=== PATIENT | male | born 1965 | race Caucasian/White ===

== ENCOUNTER 2020-01-07 09:19 | Emergency (ER) | payer MEDICARE, MEDICAID, SELFPAY ==
[2020-01-07 09:25] VITALS: BP 151/97; PULSE 73; RESP 17; TEMP 36.6; O2SAT 100; BMI 21.7
--- NOTE | 2020-01-07 09:28 | XR_ITS ---
PROCEDURE: XR ANKLE LT MIN 3V CLINICAL INDICATION: pain COMPARISON: No exams were available for comparison FINDINGS: There is no significant soft tissue swelling. The medial and lateral malleolus appear intact. There is spurring of the tip of the medial malleolus however the overall ankle mortise appears normal. IMPRESSION: Negative for acute pathology Dictated by: Dr. Cuong Funes MD 01/07/2020 10:52 Dr. Cuong Funes MD in [place] 01/07/2020 10:52
--- NOTE | 2020-01-07 09:40 | [facility].EDGENADL ---
ED Disposition Clinical Impression: Left ankle sprain Qualifiers: Encounter type: initial encounter Involved ligament of ankle: anterior talofibular ligament Qualified Code(s): S93.492A - Sprain of other ligament of left ankle, initial encounter Disposition: Home, Self-Care Condition on Discharge: Good Instructions: DI for Ankle Sprain, How to Use Crutches Additional Instructions: Use crutches for 4-5 days. Ice 20 minutes 4-5 times a day and elevate ankle for 2 days. Use air cast for 1 week. Ibuprofen for pain. Follow-up with orthopedics if not improving in 4 to 5 days. Prescriptions: Ibuprofen [Ibuprofen 800mg Tab] 800 mg PO Q8HP PRN #15 tab PRN Reason: Moderate Pain Transmission Status: Pending to [facility] Referrals: PCP,Esther [Primary Care Provider] - Marni Garcia MD [Physician] - - Critical Care Critical Care Time: No Attestation: On 01/07/20, the high probability of a clinically significant, sudden or life threatening deterioration of the following system(s) required my full and direct attention, intervention and personal management. The time I documented below is in addition to time spent performing reported procedures but includes the following listed in this critical care notation. Medical Decision Making - Rosas Inquiry Pt receiving controlled substance: No Vital Signs: 01/07/20 09:25 Temperature 97.9 F Temperature Source Oral Pulse Rate [Right Radial] 73 Respiratory Rate 17 Blood Pressure [Right Arm] 151/97 H Blood Pressure Mean [Right Arm] 115 02 Sat by Pulse Oximetry 100 Oxygen Delivery Method Room Air Orders (Tests/Meds): ORDERS Category Date Time Status Ankle XR - Left minimum 3 Views [XR ankle LT min 3V] Exams 01/07/20 09:28 Taken Stat - Radiology Data #1 Image(s): Ankle Image Reviewed: Yes I reviewed the patient's radiology image Preliminary Findings: Normal/NAD General Adult HPI - General Chief complaint: Extremity Injury, Lower Stated complaint: left foor pain AO 01/07/20 Time Seen by Provider: 01/07/20 09:40 Mode of Arrival: Ambulatory Limitations: No Limitations Description of Symptoms (Recalled from ER Triage Doc. by RN): pt states that he stepped off of a tailgate of a truck today injuring his left ankle. denies other pain/injury. - History of Present Illness HPI narrative: States he has injured his left ankle twice. The first time was a week ago when a come along fell and hit it on the lateral aspect. He said that was getting better and then he stepped off of a tailgate about 3 feet and inverted his left ankle, causing increased pain in the same area. He says he is able to walk on his toe, but when he walks flat-footed he has pain. Pain is on the lateral aspect of the ankle anterior to his lateral malleolus. No treatment prior to arrival. - Related Data Previous Rx's Medication Instructions Recorded Ibuprofen [Ibuprofen 800mg Tab] 800 mg PO Q8HP PRN #15 tab 01/07/20 Allergies Allergy/AdvReac Type Severity Reaction Status Date / Time codeine [CODEINE] Allergy Unknown Verified 01/07/20 09:30 [facility] History - Hepatitis A Screen Drug use history?: No High risk sexual behaviors?: No History of sexually transmitted infection?: No Currently employed?: No Childcare worker?: No Do you have indoor plumbing?: Yes Do you have electricity?: Yes Attestation statement:: This patient has been screened for Hepatitis A risk factors. I have reviewed the patient's past medical history: Yes Medical History: Denies:: Diabetes Mellitus Type 1, Diabetes Mellitus Type 2 - Social History Smoking Status: Current every day smoker # Packs/Day (cigarettes): 1 Alcohol Intake: current Alcohol Intake Frequency:: a few times a month Occupational Status: disabled ROS Obtained: Yes Systems reviewed as appropriate & no additional complaints - Musculoskeletal Musculoskeletal: Reports joint pain (Left ankle) - Neurologic Neurolog
[2020-01-07 10:02] VITALS: BP 140/85; PULSE 70; RESP 17; TEMP 36.6; O2SAT 100
== END 2020-01-07 10:02 | disposition home or self-care (01) ==
PROVIDERS: Emergency Provider Emergency Medicine
DX: S93.492A Sprain of other ligament of left ankle, initial encounter (principal); X50.1XXA Overexertion from prolonged static or awkward postures, initial encounter; Y92.89 Other specified places as the place of occurrence of the external cause; F17.210 Nicotine dependence, cigarettes, uncomplicated
CPT/HCPCS: 73610; 99283

== ENCOUNTER 2021-02-09 16:04 | Emergency (ER) | payer MEDICARE, MEDICAID, SELFPAY ==
--- NOTE | 2021-02-09 18:55 | HMH.EDGENADL ---
ED Disposition Clinical Impression: Cellulitis Qualifiers: Site of cellulitis: face Qualified Code(s): L03.211 - Cellulitis of face Disposition: Home, Self-Care Condition on Discharge: Good Instructions: DI for Skin Abscess, Cellulitis Prescriptions: diphenhydrAMINE HCL [Benadryl 25mg Capsule] 25 mg PO Q8 PRN #30 cap PRN Reason: Itching Prescription Printed cephALEXin [cephALEXin 500mg capsule*] 500 mg PO QID 7 Days #28 cap Prescription Printed methylPREDNISolone [Medrol 4mg tab] 4 mg PO DIRECTED #21 tab Prescription Printed Referrals: Provider,Referral, [Primary Care Provider] - Time of Disposition: 19:01 - Critical Care Critical Care Time: No Attestation: On 02/09/21, the high probability of a clinically significant, sudden or life threatening deterioration of the following system(s) required my full and direct attention, intervention and personal management. The time I documented below is in addition to time spent performing reported procedures but includes the following listed in this critical care notation. Medical Decision Making - Medical Records Medical records reviewed: Yes: I reviewed the patient's medical records. - Rosas Inquiry Pt receiving controlled substance: No Medical Decision Narrative: 55-year-old male who presents to the emergency department with chief complaint of rash to right side of face and neck been worsening for the past 2 days, patient describes it as itching and burning.?Does not appear characteristic of shingles as it is not localized to one dermatome or nerve root. Not appear characteristic of poison oak or poison barbara, as there are no vesicles or weeping. Significant erythema and induration and tenderness of multiple small lesions scattered over back of neck, scalp, chin, and face. Patient has no systemic signs or symptoms and does not wish to have any lab work or further investigation as he is requesting to leave at this time. Patient will be treated for cellulitis versus folliculitis given physical exam. He will be been a prescription for a Medrol dose pack, Benadryl as needed every 8 hours, and a prescription for Keflex QID for 7 days. Minimal for this plan. Patient was counseled to obtain a PCP and follow-up with his PCP as soon as possible, he likely needs to establish care and have this rash followed up on. General Adult HPI - General Chief complaint: Skin/Abscess/Foreign Body Stated complaint: rash Time Seen by Provider: 02/09/21 18:55 - History of Present Illness HPI narrative: 55-year-old male who presents to the emergency department with complaints of rash to right side of face. Patient states this onset 2 days ago with a small bump on his right earlobe. He states he scratched at it causing it to open up, and he now has small bumps all over the right side of his right face, neck, and back of his head. Denies fevers, chills, nausea, vomiting or diarrhea. He denies any past medical history but states he has not seen a doctor in 10 years. He has evidence of disseminated rash overlying right face and neck which is very tender. Patient states it is extremely painful when touched or rubbed and feels like sharp, shooting pain. He was worried it could be shingles. He states he has not been outside getting into any brush or working outdoors. MD complaint: skin rash Onset (ago): day(s) (2) Location: head, face Radiation: non-radiation Severity: moderate Severity scale (1-10): 4 Quality: burning Consistency: constant Relieving factors: none Exacerbating factors: none Associated symptoms: denies other symptoms - Related Data Previous Rx's Medication Instructions Recorded Ibuprofen [Ibuprofen 800mg Tab] 800 mg PO Q8HP PRN #15 tab 01/07/20 cephALEXin [cephALEXin 500mg 500 mg PO QID 7 Days #28 cap 02/09/21 capsule*] diphenhydrAMINE HCL [Benadryl 25mg 25 mg PO Q8 PRN #30 cap 02/09/21 Capsule] methylPREDNISolone [Medrol 4mg 4 mg PO DIRECTED #21 t
[2021-02-09 19:05] VITALS: BP 132/70; PULSE 87; RESP 16; TEMP 36.9; O2SAT 98
== END 2021-02-09 19:06 | disposition home or self-care (01) ==
PROVIDERS: Emergency Provider Emergency Medicine
DX: L03.211 Cellulitis of face (principal); F17.210 Nicotine dependence, cigarettes, uncomplicated; Z88.5 Allergy status to narcotic agent

== ENCOUNTER → 2021-02-28 13:07 | Outpatient (CLI) | payer MEDICARE, MEDICAID, SELFPAY ==
--- NOTE | 2021-02-28 13:20 | CT_ITS ---
PROCEDURE INFORMATION: Exam: CT Head Without Contrast Exam date and time: 02/28/2021 1:20 PM Age: 55 years old Clinical indication: Pain; Headache not specified TECHNIQUE: Imaging protocol: Computed tomography of the head without contrast. Radiation optimization: All CT scans at this facility use at least one of these dose optimization techniques: automated exposure control; mA and/or kV adjustment per patient size (includes targeted exams where dose is matched to clinical indication); or iterative reconstruction. COMPARISON: No relevant prior studies available. FINDINGS: Brain: No acute intracranial hemorrhage, cerebral edema, or midline shift. Cerebral ventricles: No hydrocephalus. Paranasal sinuses: There is no acute sinusitis. Mastoid air cells: A trace amount of fluid is noted in the left mastoid air cells. Orbital cavity: Unremarkable as visualized. Vasculature: Atherosclerotic calcifications are seen involving the cavernous carotid arteries. Bones/joints: Chronic nasal bone and nasal septum fractures are present. Soft tissues: Unremarkable. IMPRESSION: No acute intracranial abnormality.
== END ==
PROVIDERS: PCP Nurse Practitioner; Visit Provider Nurse Practitioner
DX: R51.9 Headache, unspecified (principal)
CPT/HCPCS: 70450